=== PATIENT | male | born 1955 | race Caucasian/White ===

== ENCOUNTER → 2020-12-13 12:57 | Outpatient (BNVA) | payer BC, SELFPAY | PROVIDERS: Visit Provider Family Medicine | DX: E78.5 Hyperlipidemia, unspecified (principal); I10 Essential (primary) hypertension; Z76.0 Encounter for issue of repeat prescription; N52.9 Male erectile dysfunction, unspecified; Z68.31 Body mass index [BMI] 31.0-31.9, adult; Z71.89 Other specified counseling; Z12.5 Encounter for screening for malignant neoplasm of prostate | CPT/HCPCS: 80053; 80061; 84443; 85025; G0103 ==

== ENCOUNTER → 2021-09-17 09:48 | Outpatient (BNVA) | payer SELFPAY | PROVIDERS: Visit Provider Dermatology | DX: Z01.89 Encounter for other specified special examinations (principal) ==

== ENCOUNTER → 2021-12-11 09:07 | Outpatient (BNVA) | payer MEDICARE, SELFPAY | PROVIDERS: Visit Provider Nurse Practitioner Family | DX: I10 Essential (primary) hypertension (principal); N52.9 Male erectile dysfunction, unspecified; Z12.5 Encounter for screening for malignant neoplasm of prostate; E78.5 Hyperlipidemia, unspecified; G25.81 Restless legs syndrome | CPT/HCPCS: 80053; 80061; 83735; 84443; 85025; G0103 ==

== ENCOUNTER → 2022-03-13 14:21 | Outpatient (BNVA) | payer MEDICARE, SELFPAY | PROVIDERS: Visit Provider Nurse Practitioner Family | DX: R52 Pain, unspecified (principal); Z20.822 Contact with and (suspected) exposure to COVID-19 | CPT/HCPCS: 87400; 87426 ==

== ENCOUNTER → 2022-05-13 09:26 | Outpatient (BNVA) | payer MEDICARE, SELFPAY | PROVIDERS: PCP Nurse Practitioner Family; Visit Provider Nurse Practitioner Family | DX: M47.812 Spondylosis without myelopathy or radiculopathy, cervical region (principal); M50.30 Other cervical disc degeneration, unspecified cervical region | CPT/HCPCS: 72040 ==

== ENCOUNTER → 2022-07-22 08:33 | Outpatient (BNVA) | payer MEDICARE, SELFPAY | PROVIDERS: PCP Nurse Practitioner Family; Visit Provider Nurse Practitioner Family | DX: S43.102A Unspecified dislocation of left acromioclavicular joint, initial encounter (principal); X58.XXXA Exposure to other specified factors, initial encounter | CPT/HCPCS: 73030 ==

== ENCOUNTER 2022-07-22 11:20 | Emergency (ER) | payer MEDICARE, SELFPAY ==
[2022-07-22 11:25] VITALS: BP 134/78; PULSE 67; TEMP 36.6; O2SAT 96; BMI 30.8
--- NOTE | 2022-07-22 11:44 | ED_ITS ---
Documented by User: ANNA Wadsworth 07/23/22 07:53 HPI - Extremity Problem General: Chief complaint: Extremity Injury, Upper Stated complaint: Left Shoulder Injury Time Seen by Provider: 07/22/22 11:34 History of Present Illness: Patient is a 66-year-old male comes to the ED with left shoulder injury. Injury occurred yesterday. Patient was sent here to the ED by [facility] due to shoulder injury. X-ray was performed there this morning and it showed a dislocation. Patient was on 4 chaparro and backing up and fell off landing on left shoulder. He rates his pain currently a 5 out of 10. He has full range of motion of the left shoulder. Denies any loss of consciousness, headache, vomiting or any neurological symptoms. Associated symptoms: Deny chest pain, fever(s) or rash Review of Systems Const: Denies: fever(s), chills or fatigue Eyes: Denies: change in vision or eye discomfort ENMT: Denies: throat pain, odynophagia, nasal discharge or nasal congestion Card: Denies: chest pain, palpitations, edema, swelling of feet/ankles, dyspnea on exertion or orthopnea Resp: Denies: dyspnea, productive cough or non-productive cough GI: Denies: abdominal pain, nausea, vomiting, diarrhea, constipation or hematochezia : Denies: flank pain, difficulty urinating, dysuria or hematuria Musc: Reports: extremity pain (Left shoulder) and extremity swelling (Left shoulder); Denies: neck pain or back pain Skin/Breast: Denies: rash or new lesions Neuro: Denies: headache(s), numbness in extremities or weakness in extremities FOR[facility]LY [facility] ED PFSH: Medical History Hyperlipidemia Hypertension Surgical History History of right knee surgery Hx of appendectomy Hx of fusion of cervical spine around 1989 Social History (Updated 07/22/22 @ 08:47 by Callie Tate) Smoking and tobacco status: never smoked Second hand smoke exposure: No Alcohol intake: never Lives independently: Yes Household members: spouse Marital status: Physical Exam Const: COMMON NORMALS: patient oriented x3 HENMT: COMMON NORMALS: normocephalic HEAD & SCALP: normocephalic MOUTH: Normal oral and palatal mucosa present THROAT: posterior oropharynx normal and uvula midline Neck/C-Spine: COMMON NORMALS: supple GENERAL: Yes normal visual inspection Resp: COMMON NORMALS: normal respiratory effort, No retractions, No use of accessory muscles and clear to auscultation bilaterally AUSCULTATION: clear to auscultation bilaterally Cardio: COMMON NORMALS: regular rate, regular rhythm, S1 normal heart sound present, S2 normal heart sound present, No gallops present (Cardio), No clicks present (Cardio), No murmurs present (Cardio) and Peripheral pulses 2+ throughout RATE: regular rate RHYTHM: regular rhythm HEART SOUNDS: S1 normal heart sound present and S2 normal heart sound present PERIPHERAL PULSES: Peripheral pulses 2+ throughout GI: COMMON NORMALS: Normal to inspection, nondistended, normoactive bowel sounds present, Soft to palpation, non-tender and no masses PALPATION: Yes Soft to palpation : COMMON NORMALS: Yes no CVA tenderness BLADDER/KIDNEY EXAM: Yes no CVA tenderness Back/Pelvis: COMMON NORMALS: no CVA tenderness Extremity: NARRATIVE EXTREMITY EXAM: Left shoulder?ecchymosis and swelling seen around AC joint. Full range of motion. No visible deformity seen. Neurovascular intact distally Neuro: COMMON NORMALS: patient oriented x3, CN's II-XII intact bilaterally, moves all extremities, no focal motor deficits, no sensory deficits noted and gait normal SPEECH: speech normal GAIT: Yes Normal gait present MOTOR EXAM: 5/5 motor strength present throughout Skin: GENERAL SKIN EXAM: dry skin Course Vital Signs: Vital signs: Vital Signs Temperature 97.9 F 07/22/22 11:25 Pulse Rate 67 07/22/22 11:25 Blood Pressure 134/78 07/22/22 11:25 Pulse Oximetry 96 07/22/22 11:25 Oxygen Delivery Me thod Room Air 07/22/22 11:25 MDM - Extremity (Nontraumatic) Medical Decision Making Patient is a 66-year-old male comes to the ED with left shoulder injury. Injury occurred yesterday. Patient was sent here to the ED by [facility] due to shoulder injury. X-ray was performed there this morning and it showed a dislocation. Patient was on 4 chaparro and backing up and fell off landing on left shoulder. He rates his pain currently a 5 out of 10. He has full range of motion of the left shoulder. Denies any loss of consciousness, headache, vomiting or any neurological symptoms. Vitals are stable. Left shoulder?ecchymosis and swelling seen around AC joint. Full range of motion. No visible deformity seen. Neurovascular intact distally. I reviewed the x-ray done at [facility] and it showed a left AC joint dislocation. Patient was put in a shoulder sling here in the ED and I placed order with case management for patient be referred to Ortho for follow-up. Return to ED precautions given. Patient understood agree with plan. Discharge Plan Discharge Patient Disposition: Home Clinical Impression: Closed dislocation of AC joint Qualifiers: Encounter type: initial encounter Laterality: left Qualified Code(s): S43.102A - Unspecified dislocation of left acromioclavicular joint, initial encounter Condition: Stable Prescriptions: No Action tadalafil [Cialis] 5 mg tablet 5 mg PO DAILY Qty: 30 11RF lisinopril-hydrochlorothiazide 20-12.5 mg tablet See Rx Instructions .ROUTE .COMPLEX Qty: 30 11RF Dose Instruction: TAKE ONE TABLET BY MOUTH DAILY Rx Instructions: TAKE ONE TABLET BY MOUTH DAILY atorvastatin 40 mg tablet See Rx Instructions .ROUTE .COMPLEX Qty: 30 11RF Dose Instruction: TAKE ONE TABLET BY MOUTH DAILY Rx Instructions: TAKE ONE TABLET BY MOUTH DAILY ondansetron HCl 4 mg tablet 4 mg PO Q4H PRN (Reason: nausea and vomiting) Qty: 30 0RF diclofenac sodium 75 mg tablet,delayed release (DR/EC) 75 mg PO BID PRN (Reason: pain) Qty: 60 5RF methylprednisolone [Medrol (Carlos)] 4 mg tablets,dose pack See Rx Instructions PO PER PKG DIR Qty: 21 0RF Rx Instructions: PO PER PKG DIR cyclobenzaprine 10 mg tablet 10 mg PO TID PRN (Reason: muscle spasm) Qty: 60 1RF Discharge Orders: Discharge ED (Routine); Ordered 07/22/22 Ordered By: Joey Mauricio Referrals: Elaina Layton FNP [Primary Care Provider] - Discharge Diet: Regular Discharge Activity: Increase activity as tolerated Patient Instructions: Acromioclavicular Separation (ED) Activity Restrictions/Additional Instructions: Follow-up with medical provider as directed. Case management to be contacted in the next several days set up an appoint with Ortho for follow-up on left shoulder injury. Wear shoulder sling until cleared by Ortho. Take [id number] Tylenol or Motrin to help with pain. Return to the ER or your medical provider if condition worsens. Please read and understand discharge instructions. Thank you for choosing [facility] for your healthcare needs today. Please realize this is an emergency room and that we are providing you with a medical screening exam and this may not be complete and all inclusive of all the testing and or work up that you may need to determine your ailment or severity of your illness. It is very important that you follow up as instructed or that you return to the Emergency Department should you have concerns or if your condition changes or worsens in any way. Coding Level of Care Code ED Buildings And Grounds Supervisor for Stef Dominguez Documented by User: Raul Danielson DO 07/23/22 14:50 HPI - Extremity Problem General: Chief complaint: Extremity Injury, Upper Stated complaint: Left Shoulder Injury Time Seen by Provider: 07/22/22 11:34 [facility] ED PFSH: Medical History Hyperlipidemia Hypertension Surgical History History of right knee surgery Hx of appendectomy Hx of fusion of cervical spine around 1989 Social History (Updated 07/22/22 @ 08:47 by Callie Tate) Smoking and tobacco status: never smoked Second hand smoke exposure: No Alcohol intake: never Lives independently: Yes Household members: spouse Marital status: Course Vital Signs: Vital signs: Vital Signs Temperature 97.9 F 07/22/22 11:25 Pulse Rate 67 07/22/22 11:25 Blood Pressure 134/78 07/22/22 11:25 Pulse Oximetry 96 07/22/22 11:25 Oxygen Delivery Me thod Room Air 07/22/22 11:25 MDM - Extremity (Nontraumatic) Medical Decision Making Patient is a 66-year-old male comes to the ED with left shoulder injury. Injury occurred yesterday. Patient was sent here to the ED by [facility] due to shoulder injury. X-ray was performed there this morning and it showed a dislocation. Patient was on 4 chaparro and backing up and fell off landing on left shoulder. He rates his pain currently a 5 out of 10. He has full range of motion of the left shoulder. Denies any loss of consciousness, headache, vomiting or any neurological symptoms. Vitals are stable. Left shoulder?ecchymosis and swelling seen around AC joint. Full range of motion. No visible deformity seen. Neurovascular intact distally. I reviewed the x-ray done at [facility] and it showed a left AC joint dislocation. Patient was put in a shoulder sling here in the ED and I placed order with case management for patient be referred to Ortho for follow-up. Return to ED precautions given. Patient understood agree with plan. Chart reviewed and patient discussed with midlevel. Agree with assessment and plan. Medical Records I reviewed the patient's medical records. Lab Data I reviewed the patient's lab results. Discharge Plan Discharge Patient Disposition: Home Clinical Impression: Closed dislocation of AC joint Qualifiers: Encounter type: initial encounter Laterality: left Qualified Code(s): S43.102A - Unspecified dislocation of left acromioclavicular joint, initial encounter Condition: Stable Prescriptions: No Action tadalafil [Cialis] 5 mg tablet 5 mg PO DAILY Qty: 30 11RF lisinopril-hydrochlorothiazide 20-12.5 mg tablet See Rx Instructions .ROUTE .COMPLEX Qty: 30 11RF Dose Instruction: TAKE ONE TABLET BY MOUTH DAILY Rx Instructions: TAKE ONE TABLET BY MOUTH DAILY atorvastatin 40 mg tablet See Rx Instructions .ROUTE .COMPLEX Qty: 30 11RF Dose Instruction: TAKE ONE TABLET BY MOUTH DAILY Rx Instructions: TAKE ONE TABLET BY MOUTH DAILY ondansetron HCl 4 mg tablet 4 mg PO Q4H PRN (Reason: nausea and vomiting) Qty: 30 0RF diclofenac sodium 75 mg tablet,delayed release (DR/EC) 75 mg PO BID PRN (Reason: pain) Qty: 60 5RF methylprednisolone [Medrol (Carlos)] 4 mg tablets,dose pack See Rx Instructions PO PER PKG DIR Qty: 21 0RF Rx Instructions: PO PER PKG DIR cyclobenzaprine 10 mg tablet 10 mg PO TID PRN (Reason: muscle spasm) Qty: 60 1RF Discharge Orders: Discharge ED (Routine); Ordered 07/22/22 Ordered By: Joey Mauricio Referrals: Elaina Layton FNP [Primary Care Provider] - Discharge Diet: Regular Discharge Activity: Increase activity as tolerated Patient Instructions: Acromioclavicular Separation (ED) Activity Restrictions/Additional Instructions: Follow-up with medical provider as directed. Case management to be contacted in the next several days set up an appoint with Ortho for follow-up on left shoulder injury. Wear shoulder sling until cleared by Ortho. Take [id number] nter Tylenol or Motrin to help with pain. Return to the ER or your medical provider if condition worsens. Please read and understand discharge instructions. Thank you for choosing [facility] for your healthcare needs today. Please realize this is an emergency room and that we are providing you with a medical screening exam and this may not be complete and all inclusive of all the testing and or work up that you may need to determine your ailment or severity of your illness. It is very important that you follow up as instructed or that you return to the Emergency Department should you have concerns or if your condition changes or worsens in any way. Coding Level of Care Code ED Buildings And Grounds Supervisor for Stef Dominguez
--- NOTE | 2022-07-22 15:34 | DCPLANNER ---
Addendum entered by Mahogany Seo 08/06/22 11:29: Patient had a follow up appointment scheduled with ortho - patient did attend appointment. Addendum entered by Mahogany Seo 07/23/22 09:58: Patient has a follow up appointment scheduled for Monday, August 01, 2022 at 10:[address] Mauricio at ortho. Original Note: statistics manager had message to schedule a follow up appointment for patient with ortho. statistics manager sent patients information to the front office staff at ortho. Patients information will be printed and reviewed. Clinic will call patient with appointment information.
== END 2022-07-22 12:32 | disposition home or self-care (01) ==
PROVIDERS: Emergency Provider Physician Assistant; PCP Nurse Practitioner Family
DX: S43.102A Unspecified dislocation of left acromioclavicular joint, initial encounter (principal); E78.5 Hyperlipidemia, unspecified; I10 Essential (primary) hypertension; V86.59XA Driver of other special all-terrain or other off-road motor vehicle injured in nontraffic accident, initial encounter
CPT/HCPCS: 73030; 99282

== ENCOUNTER → 2022-07-30 08:01 | Outpatient (BNVA) | payer MEDICARE, SELFPAY | PROVIDERS: PCP Nurse Practitioner Family; Referring Provider Physician Assistant; Visit Provider Orthopaedic Surgery | DX: S43.102A Unspecified dislocation of left acromioclavicular joint, initial encounter (principal); V86.09XA Driver of other special all-terrain or other off-road motor vehicle injured in traffic accident, initial encounter | CPT/HCPCS: 99203 ==

== ENCOUNTER → 2022-12-11 08:56 | Outpatient (BNVA) | payer MEDICARE, SELFPAY | PROVIDERS: PCP Nurse Practitioner Family; Visit Provider Nurse Practitioner Family | DX: E78.5 Hyperlipidemia, unspecified (principal); I10 Essential (primary) hypertension; Z12.5 Encounter for screening for malignant neoplasm of prostate | CPT/HCPCS: 80053; 80061; 84443; 85025; G0103 ==

== ENCOUNTER → 2022-12-15 08:39 | Outpatient (BNVA) | payer MEDICARE, SELFPAY | PROVIDERS: PCP Nurse Practitioner Family; Visit Provider Nurse Practitioner Family | DX: I10 Essential (primary) hypertension (principal); R73.9 Hyperglycemia, unspecified | CPT/HCPCS: 83036; 85025 ==

== ENCOUNTER → 2023-12-09 09:54 | Outpatient (BNVA) | payer MEDICARE, SELFPAY | PROVIDERS: PCP Nurse Practitioner Family; Visit Provider Nurse Practitioner Family | DX: Z12.5 Encounter for screening for malignant neoplasm of prostate (principal); I10 Essential (primary) hypertension; R73.9 Hyperglycemia, unspecified | CPT/HCPCS: 80053; 80061; 82607; 83036; 84443; 85025; G0103 ==

== ENCOUNTER → 2024-12-29 09:28 | Outpatient (BNVA) | payer MEDICARE, SELFPAY | PROVIDERS: PCP Nurse Practitioner Family; Visit Provider Nurse Practitioner Family | DX: Z12.5 Encounter for screening for malignant neoplasm of prostate (principal); I10 Essential (primary) hypertension; R73.9 Hyperglycemia, unspecified; E78.5 Hyperlipidemia, unspecified | CPT/HCPCS: 80053; 80061; 83036; 84443; 85025; G0103 ==